=== PATIENT | male | born 1955 | race Caucasian/White ===

== ENCOUNTER 2016-11-24 13:23 | Emergency (ER) | payer OTHER ==
--- NOTE | ~2016-11-24 | ER ---
PATIENT'S NAME: SILVERIO STEARNS [facility] AGE: 61 Y [address] ROOM: [place] [address] LOCATION: [facility] ADMIT DATE: 11/24/2016 ER/Outpatient Report DISCHARGE DATE: 11/24/2016 FAMILY PHYSICIAN: Angus Renteria MD ATTENDING PHYSICIAN: Iris Weinstein TIME SEEN: 1405 hours. CHIEF COMPLAINT: Left lower quadrant pain. HISTORY OF PRESENT ILLNESS: The patient is a 61-year-old male, who said about 10:30 this morning, he was at work when he developed pain in his left groin. Quality of pain is described as sharp, worse with movement. He said he felt somewhat nauseated after the onset of pain. Otherwise, he has had no fevers, chills, or urinary symptoms. ALLERGIES: HE HAS NO MEDICINAL ALLERGIES. HOME MEDICATIONS: None. PAST MEDICAL HISTORY: Hyperlipidemia, hypertension. PAST SURGICAL HISTORY: He has had 2 inguinal hernia repairs done by Dr. Mijares. The last one did require a mesh on the left side. SOCIAL HISTORY: He is . Nonsmoker. He has about 5 or 6 beers daily. REVIEW OF SYSTEMS: GENERAL: General health considered good. HEAD AND EENT: Negative. RESPIRATORY: No shortness of breath. GASTROINTESTINAL: Includes acute onset left lower quadrant pain. No diarrhea. No change in bowel habits. Denies any weight loss. He has had a previous colonoscopy. GENITOURINARY: No burning, frequency, or urgency. PHYSICAL EXAMINATION: PATIENT'S NAME: SILVERIO STEARNS [facility] AGE: 61 Y [address] ROOM: [place] [address] LOCATION: [facility] ADMIT DATE: 11/24/2016 ER/Outpatient Report DISCHARGE DATE: 11/24/2016 FAMILY PHYSICIAN: Angus Renteria MD ATTENDING PHYSICIAN: Iris Weinstein VITAL SIGNS: His blood pressure 132/80, his temperature is 97.2, his respiratory rate is 20, pulse 108, O2 saturations 95%. GENERAL APPEARANCE: Alert, healthy-appearing male. LUNGS: Clear. HEART: Regular rhythm. ABDOMEN: There is a palpable mass in the left inguinal area, quite tender to touch. The mass did not appear in his scrotum. LABORATORY DATA AND X-RAYS: CBC and CMS were unremarkable. TREATMENT: Saline lock was placed. He was given 0.5 of Dilaudid, which was repeated x1. Following the Dilaudid, I was able to reduce the hernia. The patient became symptom free as far as his pain. ASSESSMENT: Incarcerated left direct inguinal hernia, which was reduced. PLAN: The patient is to limit activity over the weekend especially no straining or heavy lifting. Follow up with Dr. Mijares on Sunday or return to the emergency room if he has any further symptoms or pain. The patient verbalized understanding of his take-home instructions. MARY ARIAS FOR MD BHARATI ASHER/rosa /[id number] d: 11/24/165 t: 11/28/16 0643, OUTPATIENT REPORT
[2016-11-24 14:31] LABS: BASOPHIL % 0.5 %; EOSINOPHIL % 0.4 %; HEMATOCRIT 41.8 % (37.0-53.0); HEMOGLOBIN 14.3 g/dL (11.0-16.0); IMMATURE GRANULOCYTE % 0.4 %; LYMPHOCYTE # 0.7 K/uL (0.8-4.0); LYMPHOCYTE % 11.8 %; MCH 32.1 pg (27.0-34.0); MCHC 34.2 gm/dL (32.0-36.5); MCV 93.7 fl (83.0-98.0); MONOCYTE # 0.5 K/uL (0.0-1.0); MONOCYTE % 8.3 %; MPV 9.6 fl (9.4-12.4); NEUTROPHIL # (ANC) 4.5 K/uL (1.4-9.0); NEUTROPHIL % 78.6 %; NRBC % 0 /100WBC (0-0.00); PLATELET COUNT 232 K/uL (150-450); RBC 4.46 M/uL (3.50-5.50); RDW-CV 13.2 % (11.9-14.6); WBC 5.7 K/uL (4.0-11.0)
[2016-11-24 14:47] LABS: ALK PHOS 61 IU/L (33-138); ALT 46 IU/L (12-78); ANION GAP 12.9 (10.0-19.0); AST 30 IU/L (10-40); BLOOD UREA NITROGEN 13 mg/dL (6-24); CALCIUM 9.2 mg/dL (8.5-10.5); CHLORIDE 103 mMol/L (96-110); CO2 25 mMol/L (22-32); CREATININE 1.1 mg/dL (0.6-1.3); ESTIMATED GFR (MDRD EQUATION) > 60; POTASSIUM 3.9 mMol/L (3.7-5.1); SODIUM 137 mMol/L (135-145); TOTAL BILIRUBIN 0.8 mg/dL (0.0-1.5); TOTAL PROTEIN 7.6 g/dL (6.0-8.4)
[2016-11-30] MEDS ORDERED: COZAAR100 MG PO (11:53)
[2016-11-30] MEDS ORDERED: FLOMAX0.4 MG PO (11:53)
[2016-11-30] MEDS ORDERED: LIPITOR40 MG PO (11:54)
[2016-11-30] MEDS ORDERED: XYZAL5 MG PO (11:55)
[2016-11-30] MEDS ORDERED: SUDAFED30 MG PO (11:56)
[2016-11-30] MEDS ORDERED: MEN'S MULTI-VI1 EACH PO (11:56)
[2016-11-30] MEDS ORDERED: VITAMIN C1000 MG PO (11:57)
[2016-11-30] MEDS ORDERED: CALCIUM + VITA1 EACH PO (11:57)
[2016-11-30] MEDS ORDERED: VITAMIN B-121000 MCG PO (11:58)
[2016-12-01] MEDS ORDERED: NORCO 5-325 TA1 EACH PO (10:37)
== END 2016-11-24 15:23 | disposition disaster alternative care site (69) ==
LOC: GMED 13:23
PROVIDERS: Physician Assistant Medical
DX: K40.90 Unilateral inguinal hernia, without obstruction or gangrene, not specified as recurrent (principal); I10 Essential (primary) hypertension; E78.5 Hyperlipidemia, unspecified; Z79.899 Other long term (current) drug therapy; Z98.890 Other specified postprocedural states
CPT/HCPCS: J1170

== ENCOUNTER → 2016-12-01 | Day surgery (SDC) | payer OTHER ==
[~2016-12-01] VITALS: Ht 167.6 cm; Wt 79.0 kg
[~2016-12-01] MED LIST: CALCIUM + VITA1 EACH PO; COZAAR100 MG PO; FLOMAX0.4 MG PO; LIPITOR40 MG PO; MEN'S MULTI-VI1 EACH PO; NORCO 5-325 TA1 EACH PO; SUDAFED30 MG PO; VITAMIN B-121000 MCG PO; VITAMIN C1000 MG PO; XYZAL5 MG PO
--- NOTE | ~2016-12-01 | OR ---
PATIENT'S NAME: SILVERIO STEARNS [facility] AGE: 61 Y [address] ROOM: [place] [address] [place] [facility] [facility] [place] DATE: 12/01/2016 OR/Procedure Report DISCHARGE DATE: FAMILY PHYSICIAN: Angus Renteria MD ATTENDING PHYSICIAN: Titi Mijares SURGEON: Titi Mijares MD WRAPPER LAYER: Osbaldo Waggoner PA-C. DATE OF PROCEDURE: 12/01/2016 PREOPERATIVE DIAGNOSIS: Recurrent incarcerated left inguinal hernia. POSTOPERATIVE DIAGNOSIS: Recurrent incarcerated left inguinal hernia. PROCEDURE PERFORMED: Robotic-assisted laparoscopic repair of recurrent reducible left inguinal hernia. ANESTHESIA: General endotracheal. ESTIMATED BLOOD LOSS: 10 mL. SPECIMEN: None. REASON FOR PROCEDURE: The patient is a 61-year-old male who had an open anterior repair of a reducible left inguinal hernia a couple of years ago. Just in the last week, he has had a quite painful bulge in the left groin consistent with a recurrent hernia. It was only reducible with much difficulty and then seemed to recur. He had considerable pain associated with it. We elected to proceed with repair of this. FINDINGS: We were able to reduce the hernia, once he was asleep at the start of the procedure. The patient had an indirect recurrent hernia that consisted primarily of preperitoneal fat. PROCEDURE IN DETAIL: The patient was taken to the operating suite and placed in the supine position. Initially, the hernia cannot be reduced but after general anesthesia and considerable pressure, we were able to reduce the left inguinal hernia. The abdomen was then prepped with ChloraPrep and sterilely draped. Marcaine was infiltrated into the incision sites. A 1 cm transverse incision was made in the midline about 5 cm above the umbilicus. The fascia was grasped and elevated and a Veress needle was used to obtain a pneumoperitoneum. An 8 mm robotic trocar was then passed across the abdominal wall. An 8 mm left upper quadrant robotic trocar and a 12 mm right upper quadrant robotic trocar were both placed under direct visualization. There was some midline adhesions that had to be taken down. These just involved omentum. The patient was then placed in Trendelenburg. The robot was docked PATIENT'S NAME: SILVERIO STEARNS [facility] AGE: 61 Y [address] ROOM: [place], [place] [address] [place] [facility] [place] DATE: 12/01/2016 OR/Procedure Report DISCHARGE DATE: FAMILY PHYSICIAN: Angus Renteria MD ATTENDING PHYSICIAN: Titi Mijares to the trocars and centered on the left inguinal hernia. It was not a classic peritoneal defect, but large mass of preperitoneal fat that I think was intermittently herniating through the defect. We went ahead and divided the peritoneum from the median umbilical ligament out towards the anterior superior iliac spine. A pocket was created the peritoneum down. There were some adhesions to the previous plug that eventually we were able to free up. The patient had a defect in the indirect space that contained primarily preperitoneal fat. We carefully stripped all this away including a cord lipoma. The exposure of the cord was somewhat challenging because of the previous scar tissue and change in anatomy. Eventually, though we were able to free up the cord completely and reduce all the peritoneal the 3DMax Ultrapro mesh was then placed into the defect. Two sutures were placed through the mesh and into Rajeev's ligament. Another Vicryl suture was used to sew this in the anterior lateral portion of the mesh. Mesh lied smoothly in position covering the defect well, pulling the peritoneum up left the mesh lying flat against the pelvis. The peritoneum was then closed with a running V-Loc suture. The trocars were all withdrawn. The pneumoperitoneum was evacuated. The fascial defect at the trocar sites were closed with a Vicryl suture. The skin incisions were closed with subcuticular Monocryls. Benzoin, Steri-Strips, and gauze dressings were applied. POSTPROCEDURE PLAN: The patient will be sent to recovery. He will be discharged home when awake and alert and able to void. He is to avoid any heavy lifting or strenuous activity. He is given a prescription for [place] for pain control. MD Cristian PETTYTM/collinl /[id number] d: 12/01/16 1418 t: 12/04/16 0903, OPERATIVE SUMMARY
== END | disposition disaster alternative care site (69) ==
LOC: GPOC 11-30 14:00 → GSDC 05:55
PROC: 0YU64JZ Supplement Left Inguinal Region with Synthetic Substitute, Percutaneous Endoscopic Approach (ICD-10-PCS; principal; 2016-12-01)
DX: K40.31 Unilateral inguinal hernia, with obstruction, without gangrene, recurrent (principal); I10 Essential (primary) hypertension; E78.00 Pure hypercholesterolemia, unspecified; Z79.899 Other long term (current) drug therapy
CPT/HCPCS: C1781; J0694; J1100; J2001; J2250; J2405; J7120